=== PATIENT | female | born 1945 | race Caucasian/White ===

== ENCOUNTER 2024-04-08 12:41 | Emergency (ER) | payer OTHER, MEDICARE, BC ==
[~2024-04-08] VITALS: Ht 165.1 cm; Wt 93.0 kg
[2024-04-08] MEDS ORDERED: Norco 5-325 Ta1 EACH PO (14:39)
== END 2024-04-08 14:37 | disposition home or self-care (01) ==
LOC: ER 12:41
DX: S42.255A Nondisplaced fracture of greater tuberosity of left humerus, initial encounter for closed fracture (principal); S42.215A Unspecified nondisplaced fracture of surgical neck of left humerus, initial encounter for closed fracture; W01.0XXA Fall on same level from slipping, tripping and stumbling without subsequent striking against object, initial encounter
CPT/HCPCS: 73030; 99283-25